=== PATIENT | female | born 1970 | race Two or more races ===

== ENCOUNTER 2019-03-16 09:32 | Emergency (ER) | payer OTHER ==
[~2019-03-16] VITALS: Ht 157.5 cm; Wt 72.6 kg
[2019-03-16 09:51] VITALS: Ht 157.5 cm; Wt 72.6 kg
[2019-03-16 14:05] VITALS: BP 129/77
== END 2019-03-16 14:05 | disposition home or self-care (01) ==
LOC: ED 09:32
DX: J98.11 Atelectasis (principal); F31.9 Bipolar disorder, unspecified; F17.210 Nicotine dependence, cigarettes, uncomplicated; Z88.8 Allergy status to other drugs, medicaments and biological substances; Z59.0 Homelessness